=== PATIENT | male | born 2005 | race Caucasian/White ===

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

== ENCOUNTER 2025-01-22 17:49 | Emergency (ER) | payer OTHER, SELFPAY ==
[2025-01-22 17:52] VITALS: BP 152/89; PULSE 101; RESP 18; TEMP 37.4; O2SAT 100; BMI 32.5
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
[2025-01-22 18:08] LABS: Hematocrit 43.8 % (37-53); Hemoglobin 15.40 g/dL (13.2-15.6); Mean Corpuscular HGB Conc 35.2 g/dL (30-55); Mean Corpuscular Hemoglobin 28.6 pg (27-33); Mean Corpuscular Volume 81.3 fl (82-101); Nucleated Red Blood Cells % 0 %; Platelet Count 252 10^3/cmm (157-399); Red Blood Count 5.39 10^6/uL (3.85-5.65); White Blood Count 11.85 10^3/uL (4.5-13.0)
[2025-01-22] MEDS: iohexol 350 mg/mL 500 mL Btl (per mL) IV (18:11)
[2025-01-22 18:30] LABS: Alanine Aminotransferase 46 U/L (0-41); Albumin Level 4.6 g/dL (3.5-5.2); Alkaline Phosphatase 78 U/L (40-130); Anion Gap 17.4 (5-19); Aspartate Amino Transferase 28 U/L (0-40); Blood Urea Nitrogen 13 mg/dL (6-20); Calcium 9.7 mg/dL (8.5-10.5); Carbon Dioxide 22 mmol/L (22-29); Chloride 100 mmol/L (98-107); Creatinine Clr Calc Pharmacy 126.1884; Globulin 3.1 g/dL (1.3-4.6); Glucose 132 mg/dL (65-115); Osmolality Calculated 284 mOsm/kg (285-295); Potassium 3.4 mmol/L (3.5-5.1); Sodium 136 mmol/L (136-145); Total Protein 7.7 g/dL (6.6-8.7)
[2025-01-22] MEDS: ondansetron 2 mg/ML SDV 2 mL 4 MG IVP (18:31)
[2025-01-22 18:32] VITALS: RESP 19; O2SAT 97
[2025-01-22] MEDS: morphine 4 mg/mL SDV 1 mL IVP (18:32)
[2025-01-22 18:42] LABS: Alcohol Level < 10 mg/dL (0-10)
[2025-01-22 18:48] VITALS: BP 147/80; PULSE 87; RESP 16; O2SAT 97
[2025-01-22 20:13] VITALS: BP 149/88; PULSE 98; RESP 18; O2SAT 100
== END 2025-01-22 20:45 | disposition home or self-care (01) ==
PROVIDERS: Emergency Provider Emergency Medicine; Family Provider Nurse Practitioner; PCP Nurse Practitioner Family
DX: S40.012A Contusion of left shoulder, initial encounter (principal); S06.0X1A Concussion with loss of consciousness of 30 minutes or less, initial encounter; V86.59XA Driver of other special all-terrain or other off-road motor vehicle injured in nontraffic accident, initial encounter; M25.512 Pain in left shoulder
CPT/HCPCS: 36415; 70450; 71260; 72125; 73030; 74177; 80053; 80307; 82550; 85025; 86850; 86900; 96374; 96375; 99285; J2270; J2405; J7030